=== PATIENT | male | born 1955 | race Caucasian/White ===

== ENCOUNTER 2019-07-21 18:09 | Emergency (ER) | payer OTHER, SELFPAY ==
[2019-07-21 18:18] VITALS: BP 136/93; PULSE 91; RESP 16; TEMP 36.4; O2SAT 93; BMI 33.2
--- NOTE | 2019-07-21 19:17 | ED_ITS ---
HPI - Head Injury General: Chief complaint: Head Injury Stated complaint: head lac Time Seen by Provider: 07/21/19 18:27 History of Present Illness: HPI Narrative: Patient is a 64-year-old male who comes into the ED with a laceration on his head. Patient says he was chasing his roosters around his barn and ran into 2 x 4 board. Denies any loss of consciousness, nausea, vomiting, confusion, vision changes, or headache. Patient also denies chest pain, shortness of breath, upper respiratory symptoms, cough, abdominal pain, nausea, vomiting, dysuria, hematuria, constipation, diarrhea, blood in the stool, weakness to extremities or numbness or tingling to extremities. Review of Systems General: Reports: 10 or more systems reviewed and unremarkable except in HPI and below PFSH ED PFSH: Statuses (acute, chronic, etc) shown below reflect problem list status as previously entered and may not be historically accurate Social History Smoking and tobacco status: never smoked Physical Exam Const: COMMON NORMALS: oriented x3 HENMT: COMMON NORMALS: normocephalic HEAD & SCALP: normocephalic and laceration vertex Details of head laceration: linear and superficial; not actively bleeding Head laceration size: 3.5 cm MOUTH: oral and palatal mucosa normal THROAT: posterior oropharynx normal and uvula midline Neck/C-Spine: COMMON NORMALS: supple GENERAL: Yes normal visual inspection Resp: COMMON NORMALS: normal respiratory effort, no retractions, no use of accessory muscles and clear to auscultation bilaterally AUSCULTATION: clear to auscultation bilaterally Cardio: COMMON NORMALS: regular rate, regular rhythm, S1 normal heart sound, S2 normal heart sound, no gallops, no clicks, no murmurs and peripheral pulses 2+ throughout RATE: regular rate RHYTHM: regular rhythm HEART SOUNDS: S1 normal and S2 normal PERIPHERAL PULSES: pulses 2+ throughout GI: COMMON NORMALS: normal to inspection, nondistended, normoactive bowel sounds, soft to palpation, non-tender and no masses PALPATION: Yes soft : COMMON NORMALS: Yes no CVA tenderness BLADDER/KIDNEY EXAM: Yes no CVA tenderness Back/Pelvis: COMMON NORMALS: no CVA tenderness Extremity: COMMON NORMALS: normal to inspection Neuro: ZIA COMA SCALE: document GCS findings [place] coma scale eye opening: Spontaneous [place] coma scale verbal response: Orientated [place] coma scale motor response: Obey commands [place] coma scale total score: 15 COMMON NORMALS: oriented x3 Skin: TRAUMA: laceration (Scalp) linear, superficial and sensation intact; not actively bleeding Procedures Laceration Laceration 1: Site: scalp Size (cm): 3.5 Description: linear Depth: simple, single layer Local Anesthetic: lidocaine 1% and with epi Amount of anesthesia used (mL): 10 Pre-repair: irrigated extensively (Irrigated with NS and cleaned with CHG.) Number of sutures: 6 (Alyce) Technique: other (Alyce) Course ED course: Tdap given. 6 alyce used to close laceration. Bleeding stopped. Vital Signs: Vital signs: Vital Signs Temperature 98.2 F 07/21/19 20:20 Pulse Rate 61 07/21/19 20:20 Respiratory Rate 18 07/21/19 20:20 Blood Pressure 131/74 07/21/19 20:20 Pulse Oximetry 98 07/21/19 20:20 MDM - Head Injury MDM Narrative: Medical decision making narrative: Patient is a 64-year-old male comes into the ED with head laceration. [place] CT head rule- No imaging indicated-GCS score of 15, no skull tenderness, No vomiting, no raccoon eyes or andres signs or bleeding from the ears. Laceration was repaired using alyce. Patient was told to follow-up with primary care doctor in 5-7 days for reevaluation he can have alyce removed in 7-10 days. Patient was given Tdap in the ED. Discharge Plan Discharge Patient Disposition: Home, Self-Care Clinical Impression: Laceration Condition: Good Discharge Orders: Discharge Order (Routine); Ordered 07/21/19 Ordered By: Gino Euceda Discharge Diet: Regular Discharge Activity: Resume usual activity Activity Restrictions/Additional Instructions: Keep wound clean and dry for the first 48 hours. Then patient continues showering rinse hair after 48 hours. Watch for signs of infection such as redness warmth and drainage around the laceration site. He can apply triple antibiotic ointment on laceration as needed. Have your alyce removed in 7-10 days either here in the ED or urgent care or primary care doctor. Follow-up with her primary care doctor in 5-7 days for reevaluation. Discuss head laceration with orthopedic surgeon. Take Tylenol or ibuprofen as needed for pain. Discharge Date/Time: 07/21/19 20:22 Coding Level of Care Code ED Shoe Shiner for Estrellita Bravo
[2019-07-21] MEDS: tetanus-diphtheria tox (adult) 0.5 mL SDV IM (19:32)
[2019-07-21 20:20] VITALS: BP 131/74; PULSE 61; RESP 18; TEMP 36.8; O2SAT 98
== END 2019-07-21 20:22 | disposition home or self-care (01) ==
PROVIDERS: Emergency Provider Physician Assistant
DX: S01.01XA Laceration without foreign body of scalp, initial encounter (principal); W22.8XXA Striking against or struck by other objects, initial encounter; Z23 Encounter for immunization
CPT/HCPCS: 12002; 90471; 90472; 90714; 99282; 99283; J2001

== ENCOUNTER 2024-03-28 11:38 | Outpatient (CLI) | payer OTHER, SELFPAY ==
--- NOTE | 2024-03-28 11:46 | MR_ITS ---
WS: [id number] Limited MRI IACs without gadolinium enhancement. INDICATION: Chronic bilateral tinnitus TECHNIQUE: Axial FLAIR coronal Fiesta axial FLAIR fiesta axial diffusion and coronal T2 imaging was p erformed. Images are degraded due to susceptibility artifact from metallic artifact around the RIGHT mastoid. R adiographs demonstrate a needle fragment in this area. Consider needle fragment removal prior to carloz tional MRI head imaging. FINDINGS: Noncontrast limited MRI IAC performed. No evidence of restricted diffusion to suggest acute ischemia. Ventricular system and basal cisterns are patent. Mild small vessel changes. Mild parenchymal volume loss. Paranasal sinuses are well aerat ed. Mastoid air cells are well aerated. Normal posterior nasopharynx. Temporal lobes and hippocampal formations are normal in appearance. Proximal 7th and 8th cranial nerves are normal in appearance. Normal trigeminal nerve root entry zone s. Normal noncontrast IACs. MR/MR iac's wo con [id number] IMPRESSION: Consider needle fragment removal from the RIGHT perimandibular soft tissues prior to additional MRI head imaging. See accompanying radiograph. 1. Noncontrast IACs are normal in appearance. 2. Mild small vessel changes with mild parenchymal volume loss. 3. Mastoid air cells are well aerated. 4. No restricted diffusion to suggest acute ischemia.
--- NOTE | 2024-03-28 13:01 | XR_ITS ---
WS: [id number] NECK SOFT TISSUE TECHNIQUE: 2 views of the soft tissue neck CLINICAL INFORMATION: MRI COMPARISON: None. FINDINGS: Straightening of the normal cervical lordosis. Ankylosis cervical spine with osteopenia. Anterior hyp ertrophic changes C4-5. Mild cervical curve. Surgical clips projected over the LEFT upper lobe. Lung apices are otherwise well aerated. Needle fragment posterior to the RIGHT mandible in the subcutaneous soft tissues. Needle fragment denise sures approximately 10 mm. Tip measures approximately 3 mm from the skin. XR/XR soft tissue neck [id number] IMPRESSION: Needle fragment posterior to the RIGHT mandible in the subcutaneous soft tiss ues. Needle fragment measures approximately 10 mm. Tip measures approximately 3 mm from the skin. This accounts for the susceptibility artifact seen on MRI.
== END 2024-03-28 11:39 | disposition home or self-care (01) ==
LOC: RAD 11:40
PROVIDERS: Visit Provider Specialist
DX: H93.19 Tinnitus, unspecified ear (principal); M45.2 Ankylosing spondylitis of cervical region; M85.80 Other specified disorders of bone density and structure, unspecified site; M50.30 Other cervical disc degeneration, unspecified cervical region; M79.5 Residual foreign body in soft tissue
CPT/HCPCS: 70360; 70551; 70553